=== PATIENT | male | born 1960 | race Caucasian/White ===

== ENCOUNTER 2016-07-18 06:50 | Day surgery (SDC) | payer BC ==
[2016-07-18] MEDS ORDERED: Lactated Ringers 1,000 ML IV SCH (07:30)
[2016-07-18] MEDS ORDERED: Midazolam 1 MG/ML 2 ML SDV ONE (07:35)
[2016-07-18] MEDS ORDERED: Propofol 200 MG/20 ML SDV ONE (07:35)
[2016-07-18] MEDS ORDERED: fentaNYL 100 MCG/2 ML SDV ONE (07:35)
[2016-07-18 09:50] VITALS: BP 133/97
--- NOTE | 2016-07-18 13:49 | OR ---
DATE OF PROCEDURE: 07/18/2016 PREOPERATIVE DIAGNOSIS: Colon cancer screening. POSTOPERATIVE DIAGNOSIS: Diverticulosis. PROCEDURE: Colonoscopy to the cecum. ANESTHESIA: IV anesthesia with monitored anesthesia care. INDICATION: This 56-year-old white male is referred for a colonoscopy for colon cancer screening. He has never had a colonoscopic exam. I counseled him for the procedure including risks and alternatives, and he gave his informed consent to proceed. DESCRIPTION OF PROCEDURE: The patient was placed in the left lateral decubitus position. IV anesthesia was administered by the Anesthesia Service. Time-out was held. A rectal exam was performed, which was unremarkable. The flexible video Olympus colonoscope was introduced through his anus, up his rectum, and out his colon to the cecum. To reach this , we had to apply some abdominal compression. Once the cecum was reached, the scope was slowly withdrawn examining the mucosa throughout. No mucosal abnormalities were noted until we reached the left colon. Here, and in the sigmoid colon, we saw several scattered diverticula. There was no bleeding or inflammation associated with any of them. The scope was retroflexed in the rectum with the distal rectum appearing unremarkable. The scope was straightened and removed. He tolerated the procedure well. Raphael Stark MD /[id number]
== END 2016-07-18 10:25 | disposition home or self-care (01) ==
LOC: JP.SDS 06:50
PROVIDERS: ATTEND Surgery
DX: Z12.11 Encounter for screening for malignant neoplasm of colon (principal); K57.30 Diverticulosis of large intestine without perforation or abscess without bleeding; I10 Essential (primary) hypertension; G47.33 Obstructive sleep apnea (adult) (pediatric); E78.5 Hyperlipidemia, unspecified
CPT/HCPCS: 45378; J2250; J2704; J3010; J7120

== ENCOUNTER 2021-10-17 10:27 | Emergency (ER) | payer BC ==
[2021-10-17 10:33] VITALS: BP 152/98; PULSE 79
== END 2021-10-17 12:34 | disposition home or self-care (01) ==
LOC: JP.ED 10:27
DX: R33.9 Retention of urine, unspecified (principal); I10 Essential (primary) hypertension; E78.00 Pure hypercholesterolemia, unspecified
CPT/HCPCS: 81001; 99282; 99284

== ENCOUNTER 2021-10-20 23:30 | Emergency (ER) | payer BC ==
[2021-10-20 23:42] VITALS: BP 146/103; PULSE 76
== END 2021-10-21 01:29 | disposition home or self-care (01) ==
LOC: JP.ED 23:30
DX: R33.9 Retention of urine, unspecified (principal); I10 Essential (primary) hypertension; E78.00 Pure hypercholesterolemia, unspecified; F17.210 Nicotine dependence, cigarettes, uncomplicated; Z79.899 Other long term (current) drug therapy
CPT/HCPCS: 51702; 81001; 99282; 99283

== ENCOUNTER 2023-03-15 19:48 | Emergency (ER) | payer BC ==
[2023-03-15 20:08] VITALS: BP 148/98; PULSE 80
[2023-03-15] MEDS ORDERED: Lidocaine 2% Jelly 10 ML Urojet MUCMEM ONE (20:55)
== END 2023-03-15 21:41 | disposition home or self-care (01) ==
LOC: JP.ED 19:48
DX: N40.1 Benign prostatic hyperplasia with lower urinary tract symptoms (principal); R33.8 Other retention of urine; I10 Essential (primary) hypertension; E03.9 Hypothyroidism, unspecified; F17.210 Nicotine dependence, cigarettes, uncomplicated; Z79.899 Other long term (current) drug therapy
CPT/HCPCS: 51702; 99283

== ENCOUNTER 2025-01-26 17:56 | Inpatient (IN) | payer BC ==
[2025-01-26] MEDS: fentaNYL 50 MCG/ML SDV IM ONE (19:25)
[2025-01-26] MEDS: fentaNYL 50 MCG/ML SDV IV ONE (19:41)
[2025-01-26] MEDS: Ketorolac 30 MG/ML SDV IM ONE (20:21)
[2025-01-26] MEDS ORDERED: Naloxone 0.4 MG/ML SDV IVPUSH PRN (22:55)
[2025-01-26] MEDS ORDERED: SUZETRIGINE 50 MG PO SCH (23:00)
[2025-01-27 06:50] LABS: BLOOD UREA NITROGEN,BUN 18.0 mg/dL (7-18); CARBON DIOXIDE,CO2 26.0 mmol/L (21-32); CHLORIDE,CL 99.0 mmol/L (100-108); CREATININE 0.8 mg/dL (0.8-1.3); EST CRCL DRUG DOSING (CG) 94.51 mL/min; ESTIMATED GFR 99.0 mL/min (>60); GLUCOSE RANDOM 111.0 mg/dL (74-106); POTASSIUM,K 4.0 mmol/L (3.6-5.2); SODIUM,NA 134.0 mmol/L (140-148)
[2025-01-27] MEDS ORDERED: CYCLOBENZAPRINE 10 MG PO PRN ×2 (09:49→14:00)
[2025-01-27] MEDS: PREDNISONE 20 MG PO SCH (10:20)
[2025-01-27] MEDS: Gabapentin 100 MG Cap (PTOM) PO SCH (10:21)
[2025-01-27] MEDS: AMLODIPINE 10 MG PO SCH (10:22)
[2025-01-27] MEDS: HCTZ PO SCH (10:24)
[2025-01-27] MEDS: LOSARTAN PO SCH (10:24)
[2025-01-27] MEDS ORDERED: Dexamethasone 4 MG/ML SDV PO ONE (10:27)
[2025-01-28] MEDS: LEVOTHYROXINE 150 MCG PO SCH (07:09)
[2025-01-28] MEDS: Dexamethasone Sodium Phos/PF 10 MG/ML VIAL EPIDUR ONE (14:56)
[2025-01-28] MEDS: Iopamidol 200-M 10 ML vial ITHECAL ONE (15:05)
[2025-01-29 10:19] VITALS: BP 137/84; PULSE 90
== END 2025-01-29 10:39 | disposition home or self-care (01) | DRG 347 ==
LOC: JP.ED 17:56 → JP.MS 21:27 → OBSVTOIN 01-28 08:44
PROVIDERS: ADMIT Internal Medicine; ATTEND Internal Medicine
DX: M51.17 Intervertebral disc disorders with radiculopathy, lumbosacral region (principal); I10 Essential (primary) hypertension; G47.30 Sleep apnea, unspecified; E03.9 Hypothyroidism, unspecified; F17.210 Nicotine dependence, cigarettes, uncomplicated; E07.9 Disorder of thyroid, unspecified; H54.7 Unspecified visual loss; Z79.899 Other long term (current) drug therapy; Z79.52 Long term (current) use of systemic steroids; Z98.890 Other specified postprocedural states
CPT/HCPCS: 36415; 62323; 72148; 72148-26; 80048; 96372; 96374; 97162-GP; 99222; 99231; 99232; 99238; 99283; A9270-GY; G0378; J1100; J1171; J1650; J1885; J2003; J3010; J8540; Q9966